=== PATIENT | male | born 1990 | race Caucasian/White ===

== ENCOUNTER → 2023-05-25 | Outpatient (CLI) | payer OTHER ==
[2023-05-25 17:30] LABS: Chol/HDL Ratio 3.87 Ratio; LDL Cholesterol,Calculated 94.2 mg/dL (0.0-131.0)
== END | disposition home or self-care (01) ==
LOC: LABWHC1 09:02
DX: I10 Essential (primary) hypertension (principal); E78.00 Pure hypercholesterolemia, unspecified; R73.9 Hyperglycemia, unspecified
CPT/HCPCS: 36415; 80061; 83036

== ENCOUNTER → 2023-12-10 | Outpatient (CLI) | payer OTHER ==
[2023-12-10 11:22] LABS: Basophils # (A) 0.04 X 10*3/uL (0.00-0.10); Basophils % (A) 0.6 %; Eosinophils # (A) 0.12 X 10*3/uL (0.04-0.35); Eosinophils % (A) 1.8 %; HCT 47.6 % (39.6-50.0); HGB 16.1 g/dL (13.0-17.0); Lymphocytes # (A) 2.85 X 10*3/uL (0.90-5.00); Lymphocytes % (A) 41.9 %; MCH 29.4 pg (27.0-32.0); MCHC 33.8 g/dL (32.0-37.0); Mean Platelet Volume 9.8 FL (9.5-12.2); Monocytes % (A) 8.8 %; NRBC Per 100 WBC 0 X 10*3/uL (0.00-0.01); Neutrophils # (A) 3.18 X 10*3/uL (1.80-7.70); Neutrophils % (A) 46.8 %; Platelet Count 316 X 10*3/uL (140-440); RBC 5.47 X 10*6/uL (4.40-5.60); RDW 12.5 % (11.5-14.5)
[2023-12-10 11:42] LABS: Blood Urea Nitrogen 10.8 mg/dL (9.0-27.0); Carbon Dioxide 21.6 mmol/L (21.6-31.8); Chloride 104 mmol/L (96-109); Chol/HDL Ratio 5.61 Ratio; Glucose 83 mg/dL (70-110); LDL Cholesterol,Calculated 164.1 mg/dL (0.0-131.0); Potassium 4.1 mmol/L (3.5-5.5); Sodium 137 mmol/L (135-145)
[2023-12-10 11:43] LABS: ALT 18 U/L (10-49); AST 20 U/L (14-35); Albumin 4.6 g/dL (3.8-4.9); Albumin/Globulin Ratio 1.48 Ratio (1.60-3.17); Alkaline Phosphatase 77 U/L (41-126); Calcium 9.4 mg/dL (8.7-10.3); Globulin 3.1 g/dL (1.6-3.3); Total Bilirubin 0.6 mg/dL (0.3-1.2); Total Protein 7.7 g/dL (6.2-8.2)
[2023-12-10 13:16] LABS: Iron 140 UG/DL (65-175); Total Iron Binding Capacity 339 UG/DL (228-460)
== END | disposition home or self-care (01) ==
LOC: LABWHC1 07:37
PROVIDERS: ATTEND Nurse Practitioner Family
DX: Z00.00 Encounter for general adult medical examination without abnormal findings (principal); E78.41 Elevated Lipoprotein(a); Z68.41 Body mass index [BMI] 40.0-44.9, adult
CPT/HCPCS: 36415; 80053; 80061; 83540; 83550; 85025